=== PATIENT | male | born 1985 | race Caucasian/White ===

== ENCOUNTER 2016-03-21 12:14 | Emergency (ER) | payer BC ==
[~2016-03-21] VITALS: Ht 193 cm; Wt 98.6 kg
[~2016-03-21 12:14] MED LIST: ADULT LOW DOSE81 M1 PO; FIORICET,ESG1 TABLET PO; METOPROLOL SUCC50 MG PO; METOPROLOL TART50 MG PO; NOHOMEMEDS; PROMETHAZINE HC25 M1 PO; PROVENTIL HFA6.7 GM IH; ROBITUSSIN AC,T10 ML PO; TAMIFLU75 MG PO; TORADOL10 MG PO; Vicodin,Norco 5/325 PO; XARELTO20 MG PO; ZITHROMAX250 MG PO; ZOFRAN ODT4 MG PO; oxyCODONE PO
[2016-03-21 13:18] LABS: HEMATOCRIT 45.3 % (38.0-50.0); MCH 30.8 PG (29.0-34.0); MCHC 35.5 G/DL (30.0-36.0); MCV 86.6 FL (86-99); MEAN PLAT.VOLUME 10.6 uM^3 (9.0-12.4); PLATELET COUNT 177 K/uL (156-360); RBC DIS.WIDTH-CV 12.1 % (11.8-14.6); RED BLOOD COUNT 5.23 M/uL (4.00-5.50); WHITE BLOOD COUNT 4.8 K/uL (4.1-10.2)
[2016-03-21 13:23] LABS: CHLORIDE 106 mEq/L (99-109); POTASSIUM 4.4 mEq/L (3.7-5.4); SODIUM 141 mEq/L (136-147)
[2016-03-21 13:25] LABS: GLUCOSE 112 mg/dL (70-99)
[2016-03-21 13:26] LABS: ADD MIUA? NO; BILIRUBIN NEGATIVE; BLOOD NEGATIVE; COLOR YELLOW ((YELLOW)); GLUCOSE (STRIP) NEGATIVE; KETONES NEGATIVE; LEUKOCYTES NEGATIVE; NITRITE NEGATIVE; PH, URINE 5.5 (5-8); PROTEIN (STRIP) NEGATIVE; SPECIFIC GRAVITY 1.028 (1.000-1.030); UCUL ADDED? NO; UROBILINOGEN 0.2 MG/DL (0.2-1.0)
[2016-03-21 13:26] LABS: ANION GAP 12 MEQ/L (2-14)
[2016-03-21 13:27] LABS: TOTAL BILIRUBIN 0.4 mg/dL (0.0-1.0)
[2016-03-21 13:28] LABS: ALKALINE PHOSPHATASE 51 IU/L (3-129); GFR ESTIMATE (CALCULATED) > 59 mL/min/
[2016-03-21 13:30] LABS: UREA NITROGEN (BUN) 17 mg/dL (9-23)
[2016-03-21 15:12] LABS: LIPASE 10 U/L (1.0-51.0)
[2016-03-21] MEDS ORDERED: TRAMADOL HCL50 MG PO (15:35)
[2016-03-21 15:53] VITALS: BP 137/88
== END 2016-03-21 16:03 | disposition home or self-care (01) ==
LOC: EME 12:14
DX: R10.13 Epigastric pain (principal)
CPT/HCPCS: 74022; 80053; 81003; 83690; 85027; 99281; 99284

== ENCOUNTER 2016-07-08 16:46 | Emergency (ER) | payer BC ==
[~2016-07-08] VITALS: Ht 193 cm; Wt 100.7 kg
[~2016-07-08 16:46] MED LIST changes: +TRAMADOL HCL50 MG PO
[2016-07-08 17:17] LABS: HEMATOCRIT 43.1 % (38.0-50.0); MCH 30.6 PG (29.0-34.0); MCHC 34.3 G/DL (30.0-36.0); MEAN PLAT.VOLUME 10.2 uM^3 (9.0-12.4); PLATELET COUNT 181 K/uL (156-360); RBC DIS.WIDTH-CV 12.1 % (11.8-14.6); RBC DIS.WIDTH-SD 39.1 % (39-53); RED BLOOD COUNT 4.84 M/uL (4.00-5.50); WHITE BLOOD COUNT 4.9 K/uL (4.1-10.2)
[2016-07-08 17:25] LABS: CHLORIDE 103 mEq/L (99-109); POTASSIUM 4.7 mEq/L (3.7-5.4); SODIUM 140 mEq/L (136-147)
[2016-07-08 17:27] LABS: GLUCOSE 95 mg/dL (70-99)
[2016-07-08 17:28] LABS: ANION GAP 11 MEQ/L (2-14)
[2016-07-08 17:31] LABS: GFR ESTIMATE (CALCULATED) > 59 mL/min/; UREA NITROGEN (BUN) 18 mg/dL (9-23)
[2016-07-08 17:38] LABS: TROP-I INTERPRETATION NEGATIVE; TROPONIN-I < 0.01 ng/mL (0.0-0.30)
[2016-07-08 17:55] LABS: D-DIMER ELISA < 0.15 mg/L FEU (< 0.57)
[2016-07-08] MEDS ORDERED: KEFLEX500 MG PO (19:04)
[2016-07-08] MEDS ORDERED: PERCOCET 5/31 TABLET PO (19:04)
[2016-07-08] MEDS ORDERED: ZOFRAN4 MG PO (19:05)
[2016-07-08 19:52] LABS: TROP-I INTERPRETATION NEGATIVE; TROPONIN-I < 0.01 ng/mL (0.0-0.30)
[2016-07-08] MEDS ORDERED: NAPROSYN500 MG PO (21:00)
[2016-07-08 21:13] VITALS: BP 131/82
== END 2016-07-08 21:18 | disposition home or self-care (01) ==
LOC: EME 16:46
PROVIDERS: Physician Assistant
DX: R07.89 Other chest pain (principal)
CPT/HCPCS: 71020; 80048; 84484; 85027; 85379; 93005; 99281; 99284; J1885

== ENCOUNTER → 2017-05-10 | Outpatient (CLI) | payer BC ==
[~2017-05-10] MED LIST changes: +KEFLEX500 MG PO; +NAPROSYN500 MG PO; +PERCOCET 5/31 TABLET PO; +ZOFRAN4 MG PO
== END | disposition home or self-care (01) ==
LOC: RAD 13:04
DX: H53.8 Other visual disturbances (principal); R20.0 Anesthesia of skin; Z98.1 Arthrodesis status
CPT/HCPCS: 70470

== ENCOUNTER 2017-06-16 21:23 | Emergency (ER) | payer BC ==
[~2017-06-16] VITALS: Ht 193 cm; Wt 89.6 kg
[2017-06-16 22:05] LABS: HEMATOCRIT 43.7 % (38.0-50.0); HEMOGLOBIN 15.1 G/DL (12.5-16.6); MCH 30.8 PG (29.0-34.0); MCHC 34.6 G/DL (30.0-36.0); MCV 89.2 FL (86-99); PLATELET COUNT 206 K/uL (156-360); RBC DIS.WIDTH-SD 39.3 % (39-53)
[2017-06-16 22:14] LABS: ALBUMIN 4.9 g/dL (3.2-4.8); CHLORIDE 103 mEq/L (99-109); SODIUM 142 mEq/L (136-147)
[2017-06-16 22:16] LABS: GLUCOSE 99 mg/dL (70-99); TOTAL PROTEIN 7.6 g/dL (6.4-8.3)
[2017-06-16 22:18] LABS: TOTAL BILIRUBIN 0.4 mg/dL (0.0-1.0)
[2017-06-16 22:20] LABS: ALKALINE PHOSPHATASE 61 IU/L (3-129); GFR ESTIMATE (CALCULATED) > 59 mL/min/ (58.99-99999)
[2017-06-16 22:21] LABS: UREA NITROGEN (BUN) 23 mg/dL (9-23)
[2017-06-16 22:22] LABS: AST (GOT) 27 IU/L (2-34)
[2017-06-16 22:23] LABS: ALT (GPT) 39 IU/L (3-49); LIPASE 17 U/L (1.0-51.0)
[2017-06-16] MEDS ORDERED: REGLAN10 MG PO (23:16)
[2017-06-16] MEDS ORDERED: BENTYL10 MG PO (23:16)
[2017-06-16 23:31] VITALS: BP 129/78
== END 2017-06-16 23:32 | disposition home or self-care (01) ==
LOC: EME 21:23
PROVIDERS: Physician Assistant
DX: R10.30 Lower abdominal pain, unspecified (principal); R19.7 Diarrhea, unspecified; I48.91 Unspecified atrial fibrillation
CPT/HCPCS: 74177; 80053; 81003; 83605; 83690; 85027; 87040; 99281; 99284; J7030

== ENCOUNTER → 2017-06-25 | Outpatient (CLI) | payer BC ==
[~2017-06-25] MED LIST changes: +BENTYL10 MG PO; +REGLAN10 MG PO
== END | disposition home or self-care (01) ==
LOC: NUC 05-25 07:00
DX: K31.84 Gastroparesis (principal); R14.0 Abdominal distension (gaseous)
CPT/HCPCS: 78264; A9541

== ENCOUNTER 2017-11-10 19:45 | Emergency (ER) | payer BC ==
[~2017-11-10] VITALS: Ht 193 cm; Wt 89.4 kg
[2017-11-10 20:18] LABS: HEMATOCRIT 43.3 % (38.0-50.0); HEMOGLOBIN 15.3 G/DL (12.5-16.6); MCH 31.4 PG (29.0-34.0); MCHC 35.3 G/DL (30.0-36.0); MCV 88.9 FL (86-99); PLATELET COUNT 180 K/uL (156-360); RBC DIS.WIDTH-CV 11.9 % (11.8-14.6); RBC DIS.WIDTH-SD 38.5 % (39-53); RED BLOOD COUNT 4.87 M/uL (4.00-5.50); WHITE BLOOD COUNT 6.5 K/uL (4.1-10.2)
[2017-11-10 20:28] LABS: CHLORIDE 103 mEq/L (99-109); POTASSIUM 3.8 mEq/L (3.7-5.4); SODIUM 141 mEq/L (136-147)
[2017-11-10 20:30] LABS: GLUCOSE 98 mg/dL (70-99); TOTAL PROTEIN 7.6 g/dL (6.4-8.3)
[2017-11-10 20:32] LABS: TOTAL BILIRUBIN 0.4 mg/dL (0.0-1.0)
[2017-11-10 20:34] LABS: ALKALINE PHOSPHATASE 47 IU/L (3-129); CREATININE 0.9 mg/dL (0.6-1.3); GFR ESTIMATE (CALCULATED) > 59 mL/min/ (58.99-99999)
[2017-11-10 20:35] LABS: UREA NITROGEN (BUN) 21 mg/dL (9-23)
[2017-11-10 20:36] LABS: AST (GOT) 25 IU/L (2-34)
[2017-11-10 20:37] LABS: ALT (GPT) 42 IU/L (3-49); LIPASE 12 U/L (1.0-51.0)
[2017-11-10 20:38] LABS: TROP-I INTERPRETATION NEGATIVE; TROPONIN-I < 0.01 ng/mL (0.0-0.30)
[2017-11-10] MEDS ORDERED: REGLAN10 MG PO (21:01)
[2017-11-10 21:34] VITALS: BP 143/88
== END 2017-11-10 21:34 | disposition home or self-care (01) ==
LOC: EME 19:45
DX: K31.84 Gastroparesis (principal); Z98.1 Arthrodesis status
CPT/HCPCS: 71046; 80053; 83690; 84484; 85027; 93005; 99281; 99285